=== PATIENT | male | born 1990 | race Caucasian/White ===

== ENCOUNTER → 2017-09-10 | Outpatient (CLI) | payer BC ==
--- NOTE | 2017-09-10 09:51 | Diagnostic Imaging Report ---
PROCEDURE: CT sinuses without contrast TECHNIQUE: Multiple contiguous axial images were obtained through the sinuses without the use of intravenous contrast. Coronal and sagittal reformations were then performed. INDICATION: Chronic sinus problems. No prior studies are available for comparison. The frontal sinus is clear. The ethmoid air cells and sphenoid sinus are clear. Bilateral maxillary sinuses are clear. Trace mucosal thickening of the maxillary sinuses is seen. There are no air-fluid levels present. Nasal septum is midline. The ostiomeatal units are patent. Mastoid air cells are well aerated. IMPRESSION: No evidence of sinusitis. Dictated by: Dictated on workstation # [id number]
== END ==
LOC: RAD 08:53
PROVIDERS: ATTEND Nurse Practitioner Family
DX: J34.89 Other specified disorders of nose and nasal sinuses (principal)
CPT/HCPCS: 70486

== ENCOUNTER 2018-08-18 08:02 | Outpatient (RCR) | payer BC, OTHER | END 2018-09-13 | disposition home or self-care (01) | DX: M54.2 Cervicalgia (principal) ==

== ENCOUNTER 2018-11-11 08:01 | Outpatient (RCR) | payer OTHER | END 2018-12-19 | disposition home or self-care (01) | DX: M54.2 Cervicalgia (principal) ==

== ENCOUNTER 2019-02-24 10:07 | Outpatient (RCR) | payer OTHER | END 2019-03-28 | disposition home or self-care (01) | DX: M54.2 Cervicalgia (principal) ==

== ENCOUNTER 2019-07-06 14:35 | Outpatient (RCR) | payer OTHER | END 2019-07-09 | disposition home or self-care (01) | DX: M54.2 Cervicalgia (principal); R51 Headache ==

== ENCOUNTER 2019-09-14 09:09 | Outpatient (RCR) | payer OTHER | END 2019-11-02 | disposition home or self-care (01) | DX: M54.2 Cervicalgia (principal) ==

== ENCOUNTER 2019-12-15 09:57 | Outpatient (RCR) | payer OTHER | END 2020-03-14 | disposition home or self-care (01) | DX: M54.2 Cervicalgia (principal) ==

== ENCOUNTER 2020-07-15 15:41 | Outpatient (RCR) | payer OTHER | END 2020-07-22 | disposition home or self-care (01) | DX: M54.2 Cervicalgia (principal) ==

== ENCOUNTER 2020-10-09 10:49 | Outpatient (RCR) | payer OTHER | END 2020-12-04 | disposition home or self-care (01) | DX: M54.2 Cervicalgia (principal); R29.898 Other symptoms and signs involving the musculoskeletal system ==

== ENCOUNTER 2021-03-24 14:18 | Outpatient (RCR) | payer OTHER | END 2021-04-22 | disposition home or self-care (01) | DX: M54.2 Cervicalgia (principal) ==

== ENCOUNTER 2021-05-13 16:39 | Outpatient (RCR) | payer OTHER | END 2021-08-14 10:04 | disposition home or self-care (01) | DX: M54.2 Cervicalgia (principal) ==

== ENCOUNTER 2021-08-22 10:29 | Outpatient (RCR) | payer OTHER | END 2021-08-25 | disposition home or self-care (01) | DX: M54.2 Cervicalgia (principal) ==